=== PATIENT | female | born 1995 | race Hispanic/Latino ===

== ENCOUNTER 2019-11-03 14:17 | Emergency (ER) | payer OTHER ==
[2019-11-03 15:06] LABS: Urine Blood 3+ (NEG); Urine Glucose 4+ (NEG); Urine Protein 1+ (NEG); Urine pH 6.5 (5.0-7.0)
[2019-11-03 15:10] LABS: Absolute Lymphocytes (CBC) 1.9 K/uL (0.7-4.9); Basophils % 0.5 % (0-1.3); Hematocrit 34.8 % (36.0-45.0); Lymphocytes % 19.6 % (15.3-44.8); MPV 7.7 fL (7.6-11.3); RBC Red Blood Cell Count 4.01 M/uL (3.86-4.86)
[2019-11-03 15:16] LABS: Protime INR 0.92
[2019-11-03 15:31] LABS: ALT/SGPT 49 U/L (12-78); AST/SGOT 53 U/L (15-37); Albumin 3.1 g/dL (3.4-5.0); Alkaline Phosphatase 189 U/L (45-117); BUN Blood Urea Nitrogen 5 mg/dL (7-18); Bicarbonate 24 mmol/L (21-32); Bilirubin Direct 0.1 mg/dL (0-0.2); Bilirubin Total 0.7 mg/dL (0.2-1.0); Glucose Level 79 mg/dL (74-106); Potassium 3.4 mmol/L (3.5-5.1); Sodium Level 141 mmol/L (136-145)
[2019-11-03 15:32] LABS: Barbiturates NEGATIVE (NEGATIVE); Benzodiazepines NEGATIVE (NEGATIVE); Cocaine NEGATIVE (NEGATIVE); METHAMPHETAM NEGATIVE (NEGATIVE); Methadone NEGATIVE (NEGATIVE); Opiates NEGATIVE (NEGATIVE); Phencyclidine NEGATIVE (NEGATIVE); THC Cannibis NEGATIVE (NEGATIVE)
--- NOTE | 2019-11-03 15:42 | ER ---
Nurse's Notes [facility] Name: Margarita Tomlinson Age: 23 yrs Sex: Female : 1995 Arrival Date: 11/03/2019 Time: 14:19 Bed 19 Private MD: Diagnosis: Post Depression Presentation: 11/02 14:22 Chief complaint: Patient states: Post depression for 2 days. Suicidal thoughts ll1 (cut her wrists) also. History of the same after her last delivery. Coronavirus screen: Client denies travel out of the [place] in the last 14 days. At this time, the client does not indicate any symptoms associated with coronavirus-19. The client reports previous COVID testing was negative. Ebola Screen: Patient denies travel to an Ebola-affected area in the 21 days before illness onset. Initial Sepsis Screen: Does the patient meet any 2 criteria? HR > 90 bpm. Risk Assessment: Do you want to hurt yourself or someone else? Patient reports desire/thoughts of hurting themselves or someone else. Provider notified. Onset of symptoms was November 02, 2019. 14:22 Method Of Arrival: Ambulatory ll1 14:22 Acuity: ZOË 2 ll1 14:30 Initial Sepsis Screen: Does the patient have a suspected source of infection? No. bp Patient's initial sepsis screen is negative. Triage Assessment: 14:30 General: Appears distressed, comfortable, obese, well groomed, Behavior is cooperative, bp appropriate for age, anxious. Pain: Denies pain. EENT: No deficits noted. Neuro: Level of Consciousness is awake, alert, obeys commands, Oriented to person, place, time, situation, Appropriate for age. Cardiovascular: No deficits noted. Respiratory: No deficits noted. GI: No signs and/or symptoms were reported involving the gastrointestinal system. : No signs and/or symptoms were reported regarding the genitourinary system. Derm: No deficits noted. Musculoskeletal: No deficits noted. 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 - Social history:: Smoking status: Patient denies any tobacco usage or history of. Patient/guardian denies using alcohol, street drugs. Screenin:30 Abuse screen: Denies threats or abuse. Denies injuries from another. Nutritional bp screening: No deficits noted. Tuberculosis screening: No symptoms or risk factors identified. Fall Risk None identified. Assessment: 14:30 General: SEE TRIAGE NOTE. bp 16:00 Reassessment: PT PROVIDED OPPORTUNITY TO BREAST PUMP. PT MEDICALLY CLEAR, AWAITING bp PSYCH C/S. 18:00 Reassessment: PT ON FACETIME WITH PSYCHIATRY. bp 18:42 Reassessment: AFTER C/S WITH , PSYCH RECOMMENDS D/C ON MEDICATION WITH F/U IN bp CLINIC IN 2 WK. 18:52 Reassessment: PT D/C IN PROCESS, AWAITING FAMILY FOR TRANSPORT HOME. bp Psych: 14:30 Subjective: Patient's mood is sad, Delusions are denied, Hallucinations are denied bp Having thoughts of suicide. Plan for suicide is CUT WRISTS. Objective: Patient is cooperative, Speech is normal, Affect is blunted, Patient has mutilated themselves by CUTTER. Interventions: Removed personal items and placed in bag. Patient placed in hospital gown. Searched person for dangerous items. Urine collected and sent for urine drug test. Belonging list filled out. Suicide Risk Assessment: Sad Person Scale: Sex of patient: Female: Score 0 points. Age of patient: Score 1 point if patient 15-34. Depression: Score 1 point if signs of depression are present. Previous Attempt: Score 1 point if patient has previously attempted suicide. Substance Abuse: Score 0 point if patient does not abuse alcohol or drugs. Rational Thinking: Score 0 point if patient has rational thinking. Social Support: Score 0 if social support is present/available. Organized Plan: Score 1 point if patient had a plan in place. Relationship: Score 0 point if patient has a spouse or domestic partner. Chronic Sickness: Score 0 point if patient does not have a chronic illness, debilitating, or severe disorder. TOTAL POINTS: If total points are 3-4, proposed clinical action is close follow-up/consider hospitalization. Safety Checks: Personal items have been removed. Door is open. No visitors are present at this time. Pt denies substance abuse. Commitment: Patient will be a voluntary commitment. Vital Signs: 14:22 BP 116 / 80; Pulse 108; Resp 18; Temp 98.7; Pulse Ox 97% ; Pain 3/10; ll1 18:45 BP 103 / 74; Pulse 87; Resp 16; Temp 98.5; Pulse Ox 99% ; bp ED Course: 14:19 Patient arrived in ED. mr 14:21 Reno Good PA is PHCP. cp 14:21 Reno Ngo MD is Attending Physician. cp 14:24 Triage completed. ll1 14:25 Arm band placed on Patient placed in an exam room, on a stretcher. ll1 14:26 Miguel A Seth, PARRIS is Primary Nurse. bp 14:30 Safety Checks: Personal items have been removed. The door is open or patient has been bp placed in a hallway bed/chair. There are no family/friend visitors at this time Sitter present at this time. 14:30 Patient has correct armband on for positive identification. Bed in low position. Call bp light in reach. Side rails up X2. 14:45 Safety Checks: Personal items have been removed. The door is open or patient has been bp placed in a hallway bed/chair. There are no family/friend visitors at this time Sitter present at this time. 14:58 Inserted saline lock: 22 gauge in right forearm, using aseptic technique. Blood bp collected. 15:00 Safety Checks: Personal items have been removed. The door is open or patient has been bp placed in a hallway bed/chair. There are no family/friend visitors at this time Sitter present at this time. 15:[address] [facility]. bd 16:26 PHCP role handed off by Reno Good PA [facility] 16:26 Rell Bucio PA is PHCP. jmm 17:25 face time appt set up with dr guillermo Au at 1800. bd 18:11 Patient on face time conference with Dr. Guillermo Au. mt 18:53 No provider procedures requiring assistance completed. IV discontinued, intact, bp bleeding controlled, No redness/swelling at site. Pressure dressing applied. Administered Medications: 15:45 Drug: Potassium Effervescent Tablet 25 mEq Route: PO; bp 16:27 Follow up: Response: No adverse reaction bp Outcome: 15:41 ER care complete, transfer ordered by MD. cp 18:45 Discharge ordered by . [facility] 18:53 Discharged to home ambulatory, with family. bp 18:53 Condition: stable 18:53 Discharge instructions given to patient, family, Instructed on discharge instructions, follow up and referral plans. medication usage, Demonstrated understanding of instructions, follow-up care, medications, Prescriptions given X 3. 19:00 Patient left the ED. bp Addendum: 11/06/2019 12:02 Addendum: COVID-19 Result: Negative result given to RN to notify pt. Notified pt of i w negative COVID 19 swab results. Pt advised that even with a negative test result they should remain in isolation until symptom free for 3 days without medication. Pt also advised to return to the ED for worsening symptoms. Signatures: Nava Sheikh Joel, PA PA jmm Rivera, Mary mr Williams, Irene, RN RN Reno Monzon PA PA cp Thompson, Miguel A Alcazar mt RN RN Yolanda Nation RN RN ll1
--- NOTE | 2019-11-03 15:42 | EDPHYS ---
Physician Documentation [facility] Name: Margarita Tomlinson Age: 23 yrs Sex: Female : 1995 Arrival Date: 11/03/2019 Time: 14:19 Bed 19 Private MD: ED Physician Reno Ngo HPI: 11/02 14:24 This 23 yrs old Female presents to ER via Unassigned with complaints of cp Anxiety. 14:25 The patient presents to the emergency department with depression, suicide ideation, and cp the patient has a plan, to cut oneself and bleed. 14:25 Onset: The symptoms/episode began/occurred 2 day(s) ago. Past psychiatric history: cp Prior diagnosis: depression, Psychiatric medications include: none, the patient has not had a prior suicide gesture, the patient does not have a previous inpatient psychiatric history. Associated signs and symptoms: The patient has no apparent associated signs or symptoms. 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 Patient reports worsening depression with frequent thoughts of cutting herself over past 2 days. 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 - Social history:: Smoking status: Patient denies any tobacco usage or history of. Patient/guardian denies using alcohol, street drugs. ROS: 14:30 Constitutional: Negative for body aches, chills, fever, poor PO intake. cp 14:30 Eyes: Negative for injury, pain, redness, and discharge. cp 14:30 Cardiovascular: Negative for chest pain. 14:30 Respiratory: Negative for cough, shortness of breath, wheezing. 14:30 Abdomen/GI: Negative for abdominal pain, nausea, vomiting, and diarrhea. 14:30 Neuro: Negative for altered mental status, dizziness, headache, weakness. 14:30 Psych: Positive for depression, suicidal ideation, Negative for suicide gesture. 14:30 All other systems are negative. Exam: 14:35 Constitutional: The patient appears in no acute distress, alert, awake, non-toxic, well cp developed, well nourished. 14:35 Head/Face: Normocephalic, atraumatic. cp 14:35 Eyes: Periorbital structures: appear normal, Conjunctiva: normal, no exudate, no injection, Lids and lashes: appear normal, bilaterally. 14:35 ENT: External ear(s): are unremarkable, Nose: is normal, Mouth: is normal, Posterior pharynx: Airway: no evidence of obstruction, patent. 14:35 Chest/axilla: Inspection: normal, Palpation: is normal, no crepitus, no tenderness. 14:35 Cardiovascular: Rate: tachycardic, Rhythm: regular, Edema: is not appreciated, JVD: is not appreciated. 14:35 Respiratory: the patient does not display signs of respiratory distress, Respirations: normal, no use of accessory muscles, no retractions, labored breathing, is not present, Breath sounds: are clear throughout, no decreased breath sounds. 14:35 Abdomen/GI: Exam negative for discomfort, distension, guarding, Inspection: abdomen appears normal. 14:35 Neuro: Orientation: to person, place \T\ time. Mentation: is normal. 14:35 Psych: Behavior/mood is cooperative, depressed, tearful. Affect is calm, Patient having thoughts of suicide. Plan for suicide is cut herself Judgement / Insight is normal. Delusions/hallucinations are not present. 15:10 ECG was reviewed by the Attending Physician. Vital Signs: 14:22 BP 116 / 80; Pulse 108; Resp 18; Temp 98.7; Pulse Ox 97% ; Pain 3/10; ll1 18:45 BP 103 / 74; Pulse 87; Resp 16; Temp 98.5; Pulse Ox 99% ; bp MDM: 14:26 Patient medically screened. [facility] 15:39 Data reviewed: vital signs, nurses notes, lab test result(s), EKG. 18:41 ED course: Dr. Malik visited with the patient. Advised to discharge patient with [facility] new prescriptions, will follow up with the patient in 2 weeks. . 11/02 14:24 Order name: Acetaminophen; Complete Time: 15:36 11/02 15:38 Interpretation: ACETA < 2.0. 11/02 14:24 Order name: Basic Metabolic Panel; Complete Time: 15:36 11/02 15:37 Interpretation: Normal except: K 3.4; CL 108; BUN 5. 11/02 14:24 Order name: CBC with Diff; Complete Time: 15:36 11/02 15:38 Interpretation: Normal except: HGB 11.8; HCT 34.8; RDW 16.1; HAYLEE% 74.8. 11/02 14:24 Order name: ETOH Level; Complete Time: 15:36 11/02 14:24 Order name: Hepatic Function; Complete Time: 15:36 11/02 14:24 Order name: PT-INR; Complete Time: 15:36 11/02 14:24 Order name: Ptt, Activated; Complete Time: 15:36 11/02 14:24 Order name: Salicylate; Complete Time: 15:36 11/02 14:24 Order name: Urine Drug Screen; Complete Time: 15:36 11/02 14:24 Order name: EKG; Complete Time: 14:24 11/02 14:59 Order name: Urine Dipstick--Ancillary (enter results); Complete Time: 15:36 11/02 15:37 Interpretation: Normal except: UGLUC 4+; UKET 3+; UBLD 3+; UPROT 1+; UESTR 1+. 11/02 14:59 Order name: Urine --Ancillary (enter results); Complete Time: 15:36 11/02 15:39 Order name: COVID-19 11/02 14:24 Order name: EKG - Nurse/Tech; Complete Time: 14:57 11/02 14:24 Order name: IV Saline Lock; Complete Time: 14:57 11/02 14:24 Order name: Labs collected and sent; Complete Time: 14:57 11/02 14:24 Order name: Urine Dipstick-Ancillary (obtain specimen); Complete Time: 14:57 cp EC:10 Rate is 88 beats/min. Rhythm is regular. CT interval is normal. QRS interval is normal. cp QT interval is normal. T waves are Inverted in lead III. Interpreted by me. Reviewed by me. Administered Medications: 15:45 Drug: Potassium Effervescent Tablet 25 mEq Route: PO; bp 16:27 Follow up: Response: No adverse reaction bp Disposition: 11/03 04:36 Co-signature as Attending Physician, Reno Ngo MD I agree with the assessment and sydnie plan of care. Disposition: 11/03/19 18:45 Discharged to Home. Impression: Post Depression. - Condition is Stable. - Discharge Instructions: Depression and Baby Blues. - Prescriptions for Wellbutrin XL 150 mg Oral tablet extended release 24 hr - take 1 tablet by ORAL route one daily in the morning; 30 tablet. Prozac 10 mg Oral Capsule - take 1 capsule by ORAL route once daily; 30 capsule. Ambien 5 mg Oral Tablet - take 1 tablet by ORAL route once daily As needed at bedtime; 30 tablet. - Medication Reconciliation Form, Thank You Letter, Antibiotic Education, Prescription Opioid Use form. - Follow up: Private Physician; When: 2 - 3 days; Reason: Recheck today's complaints, Continuance of care, Re-evaluation by your physician. - Notes: Please discontinue breast feeding. You may continue to pump to maintain production. Please return to the ER if symptoms worsen. Signatures: Dispatcher [employer] EDReno Lao MD MD cha Mickail, Joel, PA PA jmm Page, Corey, PA PA cp Peltier, Brian, RN RN bp Lewis, Lynsay, RN RN ll1 Corrections: (The following items were deleted from the chart) 11/02 14:32 14:24 Urine Test ordered. cp bp 18:43 15:41 11/03/2019 15:41 Transfer ordered to Psych Facility. Diagnosis is Major jm depressive disorder, recurrent, unspecified; Suicidal ideations. Reason for transfer: Higher level of care. Accepting physician is Doctor. Condition is Stable. Problem is new. Symptoms are unchanged. cp 19:00 18:45 11/03/2019 18:45 Discharged to Home. Impression: Post Depression. bp Condition is Stable. Forms are Medication Reconciliation Form, Thank You Letter, Antibiotic Education, Prescription Opioid Use. Follow up: Private Physician; When: 2 - 3 days; Reason: Recheck today's complaints, Continuance of care, Re-evaluation by your physician. jmm
[2019-11-03] MEDS ORDERED: POTASSIUM 25 MEQ EFFERV TAB ONE (16:10)
[2019-11-03 19:14] VITALS: BP 103/74; TEMP 98.5; O2SAT 99
--- NOTE | 2019-11-04 05:51 | EKG ---
Test Date: 2019-11-03 Test Time: 15:03:28 Glue Clamp Operator: CAMMY MEASUREMENT RESULTS: Intervals: Rate: 88 MD: 112 QRSD: 72 QT: 354 QTc: 428 [place]: P: 26 MD: 112 QRS: 70 T: 13 INTERPRETIVE STATEMENTS: Normal sinus rhythm Normal ECG No previous ECG available for comparison Electronically Signed On 11-04-19 05:50:07 CDT by Calixto Smith
--- NOTE | 2019-11-04 14:52 | CON ---
The patient has been seen in the ER. History Of Present Illness: Mrs. Margarita Tomlinson is a 23-year-old female, , with 2 ki ds, currently 5 days . The patient was brought into the ER by the because of worse misty depression of 2 days duration with severe frequent crying spells, lack of motivation, lack of en ergy, anhedonia, feeling worthless and helpless, with recurrent history of suicide attempt, with plan s to cut herself. The patient was subsequently brought to the ER by the who was worried over the deterioration of her mental health. The patient denies homicidal or suicidal attempt and had si milar episode following the of her first son 4 years ago when she developed severe depression i mmediately after giving . The patient states the intensity of current episode is more than the previous episode. She states she was never admitted, though medications were suggested which she tur lashanda down. The patient states she was able to fully recover with the help of her mother and [facility] provider her support structure. The patient's current episode started 5 days p ostpartum and has become more intense. She states she does not have the similar support she had duri ng her first delivery. She states that mom and has been unable to show down due to the co gabe pandemic. The patient states her is present and her is very helpful but that stoll s not been enough. The patient states she worries that she is kids. She denies having an y intrusive hurt her baby. She states she is able to care for her baby and breastfeed her , and feeds the baby without any functioning and admits to having severe anxiety. She den ies associated panic attacks. She denies any history of psychosis. No history of bipolar disorder. The patient states She had no depressive or anxiety symptoms. She denies . Sh e states she desires to go home. She states she is not . She states she has kids to take care of. She currently is not working, last work last year . She denies any other recurre nt psychosocial stressors, states she is at home. Denies any history of ongoing abuse. Physical Examination: Vital Signs: Blood pressure is 116/80, pulse is 100, respirations 18, temp is 98.7, pulse oxymetry i s is 0/10. Mental Status Examination: The patient is mildly obese, female, , lying in hospital bed, wearing a hospital gown. Not in any acute distress. Fair grooming and hygiene. She is fairly cooperative with the interview. The eye contact was tearful, . Assessment: A 23-year-old female with past history of persistent depression, steven guevara with no history of illicit drug abuse, no past seizures or suicide attempts. The pat ient is healthcare. Diagnoses: 1.Major depressive disorder . 2.Anxiety disorder . Comments: 1. last 2 weeks and during to make sure she takes her medications and also atif g to bring her back to the ER condition gets worse. 2.We recommend refilling medications Prozac 10 mg p.o. daily, . 3.Discussed treatment plan and medications with patient . KO/MODL Voice ID: [id number] Report ID: [id number]
== END 2019-11-03 19:00 | disposition home or self-care (01) ==
LOC: ER 14:17
DX: O99.345 Other mental disorders complicating the puerperium (principal); F53.0 Postpartum depression; Z20.828 Contact with and (suspected) exposure to other viral communicable diseases
CPT/HCPCS: 93005; 85025; 80048; 36415; 80320; 80329 ×2; 81025; 85610; 80076; 80307 ×8; 85730; 81003; 99284; U0002